=== PATIENT | male | born 1965 | race Caucasian/White ===

== ENCOUNTER 2020-04-12 01:28 | Observation (INO) ==
[2020-04-12] MEDS ORDERED: *HR* HYDROmorphone (PF) 1 MG/ML SYRINGE IVP ONE (01:36)
[2020-04-12] MEDS ORDERED: Ondansetron 4 MG/2 ML VIAL IVP ONE ×3 (01:36→09:36)
[2020-04-12 02:26] LABS: Basophils # 0.1 K/mcL (0.0-0.2); Basophils % 1.4 %; Eosinophils # 0.1 K/mcL (0.0-0.6); Eosinophils % 1.9 %; Hematocrit 43.4 % (37.5-50.1); Hemoglobin 15.4 g/dL (12.9-16.9); Immature Granulocytes % 0.3 % (0-4); Lymphocytes # 2.2 K/mcL (0.6-4.6); Lymphocytes % 31.1 %; Mean Corpuscular HGB Conc 35.5 g/dL (31.6-35.5); Mean Corpuscular Hemoglobin 31.6 pg (28.0-33.3); Mean Corpuscular Volume 89.1 fL (83.0-100.0); Mean Platelet Volume 9.1 fL (9.4-12.4); Monocytes # 0.7 K/mcL (0.0-1.3); Monocytes % 9.4 %; Neutrophils # 3.9 K/mcL (1.6-8.9); Platelet Count 276 K/mcL (140-400); Red Blood Count 4.87 M/mcL (4.19-5.50); Red Cell Distribution Width 12.7 % (11.5-14.5); Segmented Neutrophils % 55.9 %
[2020-04-12 02:49] LABS: Alanine Aminotransferase 31 Units/L (7-52); Albumin 4.6 g/dL (3.5-5.7); Albumin/Globulin Ratio 1.4 (1.1-2.2); Alkaline Phosphatase 53 Units/L (34-104); Aspartate Amino Transferase 22 Units/L (13-39); BUN/Creatinine Ratio 14 (6-26); Bilirubin,Direct 0.1 mg/dL (0.0-0.2); Bilirubin,Indirect 0.8 mg/dL (0.0-1.0); Bilirubin,Total 0.9 mg/dL (0.3-1.0); Blood Urea Nitrogen 16 mg/dL (6-20); Calcium 9.9 mg/dL (8.6-10.3); Carbon Dioxide 23 mEq/L (23-29); Chloride 103 mEq/L (98-107); Globulin 3.3 g/dL (2.4-3.5); Glucose 128 mg/dL (70-105); Lipase 81 Units/L (11-82); Osmolality,Calculated 291 (280-300); Potassium 3.8 mEq/L (3.5-5.1); Sodium 139 mEq/L (136-145); Total Protein 7.9 g/dL (6.4-8.9); Troponin I < 0.03 ng/mL (< 0.04); eGFR For African Americans > 60 (> 60); eGFR For Non-African Americans > 60 (> 60)
[2020-04-12] MEDS ORDERED: Ketorolac 15 MG/ML VIAL IVP ONE (02:55)
[2020-04-12] MEDS ORDERED: *HR* Promethazine 25 MG/ML VIAL IVP ONE (02:55)
[2020-04-12] MEDS ORDERED: 0.9 % Sodium Chloride 1,000 ML IVC ONE ×2 (02:56→05:31)
[2020-04-12 03:12] LABS: Bilirubin,Urine Negative (Negative); Blood,Urine Negative (Negative); Clarity,Urine Clear (Clear); Color,Urine Light-Yellow (Yellow); Glucose,Urine (UA) Normal (Normal); Ketones,Urine 20 mg/dL (Negative); Leukocyte Esterase,Urine Trace (Negative); Mucus,Urine Few per lpf (None-Few); Nitrite,Urine Negative (Negative); PH,Urine 7.5 pH Units (5.0-8.0); Protein,Urine 30 mg/dL (Neg-Trace); Specific Gravity,Urine 1.029 (1.010-1.025); Urobilinogen,Urine Normal (Normal)
[2020-04-12] MEDS ORDERED: Isovue-370 500 ML BOTTLE IVP ONE (04:43)
[2020-04-12] MEDS ORDERED: *HR* FentaNYL (PF) 100 MCG/2 ML VIAL IVP ONE (08:13)
[2020-04-12] MEDS ORDERED: *HR* OxyCODONE Immed Rel 5 MG TABLET PO PRN ×2 (10:17→13:30)
[2020-04-12] MEDS ORDERED: *HR* Promethazine 25 MG/ML VIAL IVP PRN ×2 (10:17→13:30)
[2020-04-12] MEDS ORDERED: *HR* Meperidine 25 MG/ML SYRINGE IVP PRN ×2 (10:17→13:30)
[2020-04-12] MEDS ORDERED: *HR* HYDROmorphone PF 0.5 MG/0.5 ML SYRINGE IVP PRN ×2 (10:17→13:30)
[2020-04-12] MEDS ORDERED: Ondansetron 4 MG/2 ML VIAL IVP PRN ×2 (10:21→13:30)
[2020-04-12] MEDS ORDERED: Ketorolac 15 MG/ML VIAL IVP PRN ×2 (10:21→13:30)
[2020-04-12] MEDS ORDERED: *HR* OxyCODONE/APAP 5/325 TABLET PO PRN ×2 (10:21→13:30)
[2020-04-12] MEDS ORDERED: 0.9 % Sodium Chloride 1,000 ML IVC SCH ×2 (10:30→13:30)
[2020-04-12 10:32] LABS: Adenovirus Not Detected (Not Detect); Bordetella Pertussis Not Detected (Not Detect); Chlamydophila pneumoniae Not Detected (Not Detect); Coronavirus 229E Not Detected (Not Detect); Coronavirus HKU1 Not Detected (Not Detect); Coronavirus NL63 Not Detected (Not Detect); Coronavirus OC43 Not Detected (Not Detect); Human Metapneumovirus Not Detected (Not Detect); Human Rhinovirus/Enterovirus Not Detected (Not Detect); Influenza A Subtype 2009 H1 Not Detected (Not Detect); Influenza B Not Detected (Not Detect); Mycoplasma pneumoniae Not Detected (Not Detect); Parainfluenza Virus 1 Not Detected (Not Detect); Parainfluenza Virus 2 Not Detected (Not Detect); Parainfluenza Virus 3 Not Detected (Not Detect); Parainfluenza Virus 4 Not Detected (Not Detect); Respiratory Syncytial Virus Not Detected (Not Detect); SARS-CoV-2 Not Detected (Not Detect)
[2020-04-12] MEDS ORDERED: Ketorolac 30 MG/ML VIAL ONE (10:36)
[2020-04-12] MEDS ORDERED: Lidocaine -MPF 2% 2 ML VIAL ONE (10:36)
[2020-04-12] MEDS ORDERED: Ondansetron 4 MG/2 ML VIAL ONE (10:36)
[2020-04-12] MEDS ORDERED: *HR* FentaNYL (PF) 100 MCG/2 ML VIAL ONE (10:36)
[2020-04-12] MEDS ORDERED: Dexamethasone 4 MG/ML VIAL ONE (10:36)
[2020-04-12] MEDS ORDERED: *HR* Rocuronium Bromide 50 MG/5 ML VIAL ONE (10:36)
[2020-04-12] MEDS ORDERED: Lidocaine HCL 4 ML Topical Solution (Laryng-O-Jet Kit Sterile Pak) TP ONE (10:37)
[2020-04-12] MEDS ORDERED: *HR* Midazolam HCl 2 MG/2 ML VIAL ONE (10:37)
[2020-04-12] MEDS ORDERED: *HR* Propofol 200 MG/20 ML VIAL IVP ONE (10:37)
[2020-04-12] MEDS ORDERED: Piperacillin/Tazobactam 3.375 GM in 0.9 % Sodium Chloride Mini Bag 100 ML IVPB SCH ×2 (11:00→19:00)
[2020-04-12] MEDS ORDERED: *HR* HYDROMORPHONE 2 MG/ML VIAL ONE (11:45)
[2020-04-12 15:16] VITALS: BP 113/73
== END 2020-04-12 19:21 | disposition home or self-care (01) ==
LOC: 3BNU 01:28 → EMEROOARM 01:28 → 3BNU 10:30
PROVIDERS: ADMIT Surgery; ATTEND Surgery